=== PATIENT | female | born 1975 | race African-American/Black ===

== ENCOUNTER 2017-12-18 11:19 | Emergency (ER) | payer OTHER ==
[2017-12-18 11:30] VITALS: BMI 23.2
--- NOTE | 2017-12-18 11:46 | PDOC ---
History of Present Illness - General History Source: Patient Exam Limitations: No Limitations - History of Present Illness Initial Comments: 12/18/17 11:53 The patient is a 42 year old female, with no significant PMH, who presents to the emergency department with 4 days of exertional shortness of breath and productive cough with yellow sputum. The patient also endorses pleuritic chest/ back pain and chills. The patient denies any sick contacts or recent travel. The patient denies any recent palpitations, loss of consciousness, diaphoresis, headache and dizziness. Denies fever, nausea, vomit, diarrhea and constipation. Denies dysuria, frequency, urgency and hematuria. Allergies: NKA <Santosh Hunt - Last Filed: 12/18/17 13:18> <Viri Cristobal - Last Filed: 12/18/17 14:03> - General Chief Complaint: Shortness of Breath Stated Complaint: CHEST PAIN, SOB Time Seen by Provider: 12/18/17 11:46 Past History <Santosh Hunt - Last Filed: 12/18/17 13:18> - Past Medical History COPD: No - Suicide/Smoking/Psychosocial Hx Smoking History: Never smoked Have you smoked in the past 12 months: No Information on smoking cessation initiated: No Hx Alcohol Use: No Drug/Substance Use Hx: No Substance Use Type: None <Viri Cristobal - Last Filed: 12/18/17 14:03> - Past Medical History Allergies/Adverse Reactions: Allergies Allergy/AdvReac Type Severity Reaction Status Date / Time No Known Allergies Allergy Verified 12/18/17 11:25 Home Medications: Ambulatory Orders Albuterol Sulfate Inhaler - [Ventolin HFA Inhaler -] 2 inh PO Q4H #1 inh Azithromycin [Zithromax Tri-Kalyan (3 DAYS) -] 500 mg PO DAILY #3 tablet 12/18/17 Review of Systems - Review of Systems Comments:: 12/18/17 11:55 GENERAL/CONSTITUTIONAL: +Chills. No fever. No weakness. HEAD, EYES, EARS, NOSE AND THROAT: No change in vision. No ear pain or discharge. No sore throat. CARDIOVASCULAR: +Chest pain. +Shortness of breath. RESPIRATORY: +Productive cough with yellow sputum. No wheezing, or hemoptysis. GASTROINTESTINAL: No nausea, vomiting, diarrhea or constipation. GENITOURINARY: No dysuria, frequency, or change in urination. MUSCULOSKELETAL: No joint or muscle swelling or pain. No neck or back pain. SKIN: No rash NEUROLOGIC: No headache, vertigo, loss of consciousness, or change in strength/ sensation. ENDOCRINE: No increased thirst. No abnormal weight change. HEMATOLOGIC/LYMPHATIC: No anemia, easy bleeding, or history of blood clots. ALLERGIC/IMMUNOLOGIC: No hives or skin allergy. <Santosh Hunt - Last Filed: 12/18/17 13:18> *Physical Exam - Vital Signs Last Vital Signs Temp Pulse Resp BP Pulse Ox 99.0 F 127 H 18 141/79 95 12/18/17 11:25 12/18/17 11:25 12/18/17 11:25 12/18/17 11:25 12/18/17 11:25 - Physical Exam Comments: 12/18/17 11:56 GENERAL: Awake, alert, and fully oriented, in no acute distress HEAD: No signs of trauma EYES: PERRLA, EOMI, sclera anicteric, conjunctiva clear ENT: Auricles normal inspection, hearing grossly normal, nares patent, oropharynx clear without exudates. Moist mucosa NECK: Normal ROM, supple, no lymphadenopathy, JVD, or masses LUNGS: +Tachypneic. +Diffuse wheezes from apices and bases bilaterally. +Poor air entry. Patient is able to speak in complete sentences. HEART: +Tachycardia. Regular rhythm, normal S1 and S2, no murmurs, rubs or gallops ABDOMEN: Soft, nontender. No guarding, no rebound. No masses EXTREMITIES: Normal range of motion, no edema. No clubbing or cyanosis. No cords, erythema, or tenderness NEUROLOGICAL: Cranial nerves II through XII grossly intact. Normal speech, normal gait SKIN: Warm, Dry, normal turgor, no rashes or lesions noted. <Santosh Hunt - Last Filed: 12/18/17 13:18> - Vital Signs Last Vital Signs Temp Pulse Resp BP Pulse Ox 99.0 F 127 H 18 141/79 95 12/18/17 11:25 12/18/17 11:25 12/18/17 11:25 12/18/17 11:25 12/18/17 11:25 <Viri Cristobal - Last Filed: 12/18/17 14:03> ED Treatment Course - LABORATORY CBC & Chemistry Diagram: 12/18/17 12:22 12/18/17 11:56 - RADIOLOGY Radiograph Interpretation: 12/18/17 13:18 EXAM#: TYPE/EXAM: RESULT: [id number] RAD/CHEST PA LAT INDICATION: Shortness of breath. Fever. TECHNIQUE: PA and lateral views the chest. COMPARISON: 01/06/2015 chest x-ray. FINDINGS: The lungs are clear. There is no evidence of pulmonary vascular congestion, pleural effusion or pneumothorax. Symmetric vague nodular opacities projecting over bilateral lower lungs are most compatible with nipple shadows. Normal size and contours of the cardiomediastinal silhouette. Hilar regions are unremarkable. No abnormal deviation of the trachea. IMPRESSION: Clear lungs. Reported By: Roselyn Marquis DO <Santosh Hunt - Last Filed: 12/18/17 13:18> - LABORATORY CBC & Chemistry Diagram: 12/18/17 12:22 12/18/17 11:56 <Viri Cristobal - Last Filed: 12/18/17 14:03> Medical Decision Making - Medical Decision Making 12/18/17 12:32 Pt presents to the ED complaining of shortness of breath and productive cough. + diffuse wheezes, tachycardia and tachypnea on exam. Concern for PNA, bronchitis, unlikely cardiac disease. Will check labs and CXR, give duonebs and reassess. 12/18/17 14:01 Pt feels greatly improved after nebs in the ED. Lungs are now clear. CXR is negative, but given new wheezing, will treat with zithromax for pneumonia. <Viri Cristobal - Last Filed: 12/18/17 14:03> *DC/Admit/Observation/Transfer - Attestations Scribe Attestion: 12/18/17 11:58 Documentation prepared by Santosh Hunt, acting as dental assistant medical assistant for Viri Cristobal MD. <Santosh Hunt - Last Filed: 12/18/17 13:18> - Discharge Dispostion Decision to Admit order: No <Viri Cristobal - Last Filed: 12/18/17 14:03> Diagnosis at time of Disposition: Bronchitis - Discharge Dispostion Disposition: HOME Condition at time of disposition: Good - Prescriptions Prescriptions: Albuterol Sulfate Inhaler - [Ventolin HFA Inhaler -] 2 inh PO Q4H #1 inh Azithromycin [Zithromax Tri-Kalyan (3 DAYS) -] 500 mg PO DAILY #3 tablet - Referrals Referrals: Yogi Butler MD [Primary Care Provider] - - Patient Instructions Printed Discharge Instructions: DI for Acute Bronchitis Additional Instructions: return to the ED for worsening shortness of breath, fever, severe chest pain, shortness of breath that does not resolve after two days of antibiotics.
[2017-12-18] MEDS: ALBUTEROL SO4 2.5/IPRATROPIUM 0.5 INH SOL 3 ML VIAL.NEB. NEB SCH ×4 (12:05→12:48)
[2017-12-18] MEDS ORDERED: ALBUTEROL SO4 2.5/IPRATROPIUM 0.5 INH SOL 3 ML VIAL.NEB. NEB ONE (12:12)
[2017-12-18 12:39] LABS: BASO % 0.6 % (0-2.0); EOS % 5.9 % (0-4.5); HEMATOCRIT 43.9 % (32.4-45.2); HEMOGLOBIN 14.8 GM/dL (10.7-15.3); LYMPH % 10.2 % (8-40); MCH 31.4 pg (25.7-33.7); MCHC 33.8 g/dl (32.0-36.0); MEAN CELL VOLUME 93.1 fl (80-96); MEAN PLT VOLUME 8.2 fl (7.5-11.1); NEUT % 77.3 % (42.8-82.8); PLATELET COUNT 260 K/MM3 (134-434); RBC 4.72 M/mm3 (3.60-5.2); RDW 13.8 % (11.6-15.6); WHITE BLOOD COUNT 13.8 K/mm3 (4.0-10.0)
[2017-12-18 13:24] LABS: ALK PHOS 71 U/L (45-117); ANION GAP 5 (8-16); BLOOD UREA NITROGEN 6 mg/dL (7-18); CALCIUM 8.6 mg/dL (8.5-10.1); CHLORIDE 107 mmol/L (98-107); CO2 28 mmol/L (21-32); CREATININE 0.6 mg/dL (0.55-1.02); GLUCOSE,RANDOM 88 mg/dL (74-106); POTASSIUM 3.9 mmol/L (3.5-5.1); SGOT/AST 19 U/L (15-37); SGPT/ALT 24 U/L (12-78); SODIUM 140 mmol/L (136-145); TOT PROT 7.3 g/dl (6.4-8.2)
[2017-12-18] MEDS ORDERED: AZITHROMYCIN 250 MG TABLET PO ONE (14:00)
[2017-12-18] MEDS ORDERED: AZITHROMYCIN 250 MG TABLET ONE (14:26)
[2017-12-18 14:31] VITALS: BP 129/69; PULSE 100; TEMP 98.7
--- NOTE | 2017-12-19 15:28 | EKG ---
Test Reason : Blood Pressure : / mmHG Vent. Rate : 132 BPM Atrial Rate : 132 BPM P-R Int : 126 ms QRS Dur : 076 ms QT Int : 308 ms P-R-T Axes : 072 074 -20 degrees QTc Int : 456 ms POOR DATA QUALITY, INTERPRETATION MAY BE ADVERSELY AFFECTED SINUS TACHYCARDIA CANNOT RULE OUT ANTERIOR INFARCT , AGE UNDETERMINED T WAVE ABNORMALITY, CONSIDER INFERIOR ISCHEMIA ABNORMAL ECG WHEN COMPARED WITH ECG OF 01-FEB-2009 14:44, VENT. RATE HAS INCREASED BY 70 BPM NON-SPECIFIC CHANGE IN ST SEGMENT IN INFERIOR LEADS T WAVE INVERSION NOW EVIDENT IN INFERIOR LEADS NONSPECIFIC T WAVE ABNORMALITY NOW EVIDENT IN LATERAL LEADS Confirmed by TOSHIA CARRASCO, CHRISTIAN ([id number]) on 12/19/2017 3:28:40 PM Referred By: Confirmed By:CHRISTIAN POPE MD
== END 2017-12-18 14:45 | disposition home or self-care (01) ==
LOC: JER 11:19
PROC: 3E0F7GC Introduction of Other Therapeutic Substance into Respiratory Tract, Via Natural or Artificial Opening (ICD-10-PCS; principal; 2017-12-18)
PROC: 3E0F7GC Introduction of Other Therapeutic Substance into Respiratory Tract, Via Natural or Artificial Opening (ICD-10-PCS; 2017-12-18)
PROC: 3E0F7GC Introduction of Other Therapeutic Substance into Respiratory Tract, Via Natural or Artificial Opening (ICD-10-PCS; 2017-12-18)
PROC: 3E0F7GC Introduction of Other Therapeutic Substance into Respiratory Tract, Via Natural or Artificial Opening (ICD-10-PCS; 2017-12-18)
PROC: 3E0F7GC Introduction of Other Therapeutic Substance into Respiratory Tract, Via Natural or Artificial Opening (ICD-10-PCS; 2017-12-18)
DX: J20.9 Acute bronchitis, unspecified (principal)
CPT/HCPCS: 36415; 71046-TC-FY; 80053; 85025; 93005; 93010; 94640; 99283-25; J7620